=== PATIENT | female | born 1975 ===

== ENCOUNTER 2016-10-24 11:27 | Emergency (ER) | payer MEDICAID ==
[2016-10-24 11:39] VITALS: BP 126/89; RESP 18; TEMP 98.6; BMI 20.7
--- NOTE | 2016-10-24 12:14 | C.PDOC ---
History Of Present Illness 40 y/o female presents to ED with complaints of intermittent left arm pain for 1 year. Patient states location is outside of left elbow and occasionally over AC joint intermittent. Pain is described as sharp and lasts seconds but does not change with movement or position. Patient previously had a stress test and ECHO 6 months ago for similar symptoms. Patient is currently asymptomatic and denies trauma or any other complaints at this time. INTERMIT PAIN L ARM X 1 YR. OUTSIDE OF L ELBOW, OCCASIONALLY OVER AC JOINT. INTERMIT, NO ASSOC W MOVEMENT OR POSITION. SHARP, LASTING SECONDS. CURRENTLY ASYMPT. NO OTHER ASSOC SX, TRAUMA. PS HAD STRESS TEST, ECHO 6 MO AGO FOR SAME SX. EXAM NEG MDM REFER HAND SURG, PMD ADVISED POSSIBLE NEED FOR MRI CSPINE OTHERWISE C/W TENDONITIS Time Seen by Provider: 10/24/16 12:08 Chief Complaint (Nursing): Upper Extremity Problem/Injury History Per: Patient History/Exam Limitations: no limitations Onset/Duration Of Symptoms: Days Current Symptoms Are (Timing): Still Present Quality: Sharp Past Medical History Reviewed: Historical Data, Nursing Documentation, Vital Signs Vital Signs: Last Vital Signs Temp 98.6 F 10/24/16 11:39 Pulse 72 10/24/16 12:52 Resp 18 10/24/16 12:52 BP 126/89 10/24/16 11:39 Pulse Ox 97 10/24/16 13:38 Surgical History: Family History: States: Unknown Family Hx - Social History Hx Tobacco Use: No Hx Alcohol Use: No Hx Substance Use: No - Immunization History Hx Tetanus Toxoid Vaccination: No Hx Influenza Vaccination: No Hx Pneumococcal Vaccination: No Review Of Systems Except As Marked, All Systems Reviewed And Found Negative. Constitutional: Negative for: Fever, Chills Cardiovascular: Negative for: Chest Pain Respiratory: Negative for: Shortness of Breath Gastrointestinal: Negative for: Nausea, Vomiting, Diarrhea Musculoskeletal: Positive for: Arm Pain Skin: Negative for: Rash Neurological: Negative for: Weakness, Headache Physical Exam - Physical Exam Appears: Non-toxic, No Acute Distress Skin: Normal Color, Warm Head: Atraumatic, Normacephalic Eye(s): bilateral: Normal Inspection Oral Mucosa: Moist Neck: Normal ROM Cardiovascular: Rhythm Regular, No Murmur Respiratory: No Rales, No Rhonchi, No Wheezing Gastrointestinal/Abdominal: Soft, No Tenderness, No Guarding, No Rebound Extremity: Normal ROM, Capillary Refill (<2 seconds) Neurological/Psych: Oriented x3, Normal Speech, Normal Cognition ED Course And Treatment O2 Sat by Pulse Oximetry: 97 (RA) Pulse Ox Interpretation: Normal Medical Decision Making Medical Decision Making: Patient referred to hand surgery and PMD advised possible need for MRI, C-spine other weathers C/W Tendonitis Disposition Counseled Patient/Family Regarding: Diagnosis, Need For Followup - Disposition Referrals: Pardeep Bowen MD [Primary Care Provider] - Yessica Tavarez MD [Staff Provider] - Disposition: HOME/ ROUTINE Disposition Time: 12:39 Condition: GOOD Instructions: Tennis Elbow (ED), Cervical Radiculopathy (ED) - Clinical Impression Clinical Impression: Chronic elbow pain - PA / CUSTOMER SUPPORT ANALYST / Resident Statement / has reviewed & agrees with the documentation as recorded. / has examined the patient and agrees with the treatment plan. - Scribe Statement The provider has reviewed the documentation as recorded by the Jayy Zelaya All medical record entries made by the Jayy were at my direction and personally dictated by me. I have reviewed the chart and agree that the record accurately reflects my personal performance of the history, physical exam, medical decision making, and the department course for this patient. I have also personally directed, reviewed, and agree with the discharge instructions and disposition.
[2016-10-24 12:53] VITALS: PULSE 72
[2016-10-24 13:35] VITALS: O2SAT 97
== END 2016-10-24 12:54 | disposition home or self-care (01) ==
LOC: SUPCPDRO 11:27 → C.ER 11:27
DX: G89.29 Other chronic pain (principal); M25.522 Pain in left elbow

== ENCOUNTER 2017-09-09 07:58 | Emergency (ER) | payer MEDICAID ==
[2017-09-09 07:59] VITALS: BMI 20.7
--- NOTE | 2017-09-09 08:40 | C.PDOC ---
History Of Present Illness 41 year old female presents to the emergency department with complaints of numbness to the palmar aspect of her left hand experienced while she was putting on makeup. Patient reports that her numbness has since subsided and now she only reports a tingly sensation. Patient reports that her job requires typing, and that she has a history of tendinitis in her left arm, and stated that she had pain in her left elbow last night which presented similarly to the time of her tendinitis. Patient states she put warm compress on her elbow, with pain eventually relief. Patient denies any other numbness, such as facial numbness/weakness, speech problems, or a headache. Patient states that she decided to present to the ED due to fear of having a CVA. Time Seen by Provider: 09/09/17 08:04 Chief Complaint (Nursing): Weakness/Neurological Deficit History Per: Patient Quality: Other (numbness/tingling) Past Medical History Reviewed: Historical Data, Nursing Documentation, Vital Signs Vital Signs: Last Vital Signs Temp 98.9 F 09/09/17 09:55 Pulse 94 H 09/09/17 09:55 Resp 16 09/09/17 09:55 BP 121/80 09/09/17 09:55 Pulse Ox 98 09/09/17 09:55 - Medical History PMH: No Chronic Diseases Surgical History: No Surg Hx, Family History: States: No Known Family Hx - Social History Hx Tobacco Use: No Hx Alcohol Use: No Hx Substance Use: No - Immunization History Hx Tetanus Toxoid Vaccination: No Hx Influenza Vaccination: No Hx Pneumococcal Vaccination: No Review Of Systems Except As Marked, All Systems Reviewed And Found Negative. Neurological: Negative for: Weakness, Numbness (facial numbness), Change in Speech, Headache Physical Exam - Physical Exam Appears: Non-toxic, No Acute Distress Cardiovascular: Rhythm Regular Respiratory: Normal Breath Sounds Extremity: No Other (no numbness to the palmar aspect of the left hand.) Neurological/Psych: Oriented x3, Normal Speech, Normal Cognition, Normal Motor, Normal Sensation, Normal Reflexes ED Course And Treatment O2 Sat by Pulse Oximetry: 100 (RA) Pulse Ox Interpretation: Normal - CT Scan/US CT head Other Rad Studies (CT/US): Read By Radiologist, Radiology Report Reviewed CT/US Interpretation: Accession No. : [id number]. Patient Name / ID : RISHABH YIP / [id number]. Exam Date : 09/09/2017 08:50:53 ( Approved ). Study Comment : Sex / Age : F / 41Y. Creator : Ze Crisostomo MD. Dictator : Seismograph Helper : Payroll Manager : Ze Crisostomo MD. Approver2 : Report Date : 09/09/2017 09:36:22. My Comment : . This report is currently processing and HAS NOT BEEN OFFICIALLY SIGNED BY THE PHYSICIAN - ESTIMATED TIME OF APPROVAL IS 09/09/2017 09:44. PROCEDURE: CT HEAD WITHOUT CONTRAST. HISTORY: Left hand numbness. COMPARISON: Comparison made with CT scan brain 05/30/2014. TECHNIQUE: Axial computed tomography images were obtained through the head/brain without intravenous contrast. Radiation dose: Total exam DLP = 874.8 mGy-cm. This CT exam was performed using one or more of the following dose reduction techniques: Automated exposure control, adjustment of the mA and/or kV according to patient size, and/or use of iterative reconstruction technique. FINDINGS: HEMORRHAGE: No intracranial hemorrhage. BRAIN: No mass effect or edema. No atrophy or chronic microvascular ischemic changes. VENTRICLES: Unremarkable. No hydrocephalus. CALVARIUM: No acute calvarial fractures are identified. Re- demonstrated is a small exostosis or osteoma supra table of the left parasagittal occipital calvarium. PARANASAL SINUSES: Unremarkable as visualized. No significant inflammatory changes. MASTOID AIR CELLS: Unremarkable as visualized. No inflammatory changes. OTHER FINDINGS: None. IMPRESSION: No acute intracranial hemorrhage Progress Note: Patient was not experiencing any numbness on exam. Patient is concerned about having a CVA. Plan: CT Scan of Head w/o contrast to rule out CVA. CT head was negative, patient will be d/c home with instructions to f/u with neurologist . Disposition - Disposition Referrals: Clarence Willett MD [Staff Provider] - Disposition: HOME/ ROUTINE Disposition Time: 09:45 Condition: STABLE Additional Instructions: Follow up with Neurologoist within 1-2 days. Return to ED if feel worse. Wrist splint as discussed. Instructions: Hand Numbness Forms: [employer] [facility] (Frisian) - Clinical Impression Clinical Impression: Numbness of left hand - PA / MEDIA OPERATOR / Resident Statement MD/DO has reviewed & agrees with the documentation as recorded. - Scribe Statement The provider has reviewed the documentation as recorded by the Scribe (Jose Chapa) All medical record entries made by the Scribe were at my direction and personally dictated by me. I have reviewed the chart and agree that the record accurately reflects my personal performance of the history, physical exam, medical decision making, and the department course for this patient. I have also personally directed, reviewed, and agree with the discharge instructions and disposition.
--- NOTE | 2017-09-09 09:40 | CT ---
PROCEDURE: CT HEAD WITHOUT CONTRAST. HISTORY: Left hand numbness COMPARISON: Comparison made with CT scan brain 05/30/2014 TECHNIQUE: Axial computed tomography images were obtained through the head/brain without intravenous contrast. Radiation dose: Total exam DLP = 874.8 mGy-cm. This CT exam was performed using one or more of the following dose reduction techniques: Automated exposure control, adjustment of the mA and/or kV according to patient size, and/or use of iterative reconstruction technique. FINDINGS: HEMORRHAGE: No intracranial hemorrhage. BRAIN: No mass effect or edema. No atrophy or chronic microvascular ischemic changes. VENTRICLES: Unremarkable. No hydrocephalus. CALVARIUM: No acute calvarial fractures are identified. Re- demonstrated is a small exostosis or osteoma supra table of the left parasagittal occipital calvarium PARANASAL SINUSES: Unremarkable as visualized. No significant inflammatory changes. MASTOID AIR CELLS: Unremarkable as visualized. No inflammatory changes. OTHER FINDINGS: None. IMPRESSION: No acute intracranial hemorrhage
[2017-09-09 09:58] VITALS: BP 121/80; PULSE 94; RESP 16; TEMP 98.9
[2017-09-10 07:42] VITALS: O2SAT 100
== END 2017-09-09 09:58 | disposition home or self-care (01) ==
LOC: C.ER 07:58
DX: R20.2 Paresthesia of skin (principal)